=== PATIENT | male | born 1940 | race Caucasian/White ===

== ENCOUNTER → 2016-11-10 | Outpatient (CLI) | payer OTHER, BC ==
[~2016-11-10] MED LIST: ENOXAPARIN80 MG/0.1 SUBQ
== END ==
LOC: ULTRA 15:22
DX: K11.9 Disease of salivary gland, unspecified (principal); E04.2 Nontoxic multinodular goiter

== ENCOUNTER → 2017-07-19 | Outpatient (CLI) | payer OTHER, BC | LOC: RAD 08:48 | DX: M25.512 Pain in left shoulder (principal); I82.4Y9 Acute embolism and thrombosis of unspecified deep veins of unspecified proximal lower extremity ==